=== PATIENT | male | born 1985 | race Caucasian/White ===

== ENCOUNTER 2017-07-09 14:15 | Outpatient (CLI) | payer OTHER | END 2017-07-09 23:59 | disposition home or self-care (01) | LOC: LAB 14:15 | PROVIDERS: ATTEND Internal Medicine Rheumatology | DX: L40.50 Arthropathic psoriasis, unspecified (principal) | CPT/HCPCS: 36415; 85651 ==

== ENCOUNTER 2017-09-02 09:31 | Outpatient (CLI) | payer OTHER | END 2017-09-02 23:59 | disposition home or self-care (01) | LOC: RAD 09:31 | PROVIDERS: ATTEND Nurse Practitioner | DX: M25.462 Effusion, left knee (principal); R60.0 Localized edema; M23.52 Chronic instability of knee, left knee | CPT/HCPCS: 73721 ==

== ENCOUNTER 2025-03-08 06:13 | Day surgery (SDC) | payer BC ==
[~2025-03-08] VITALS: Ht 177.8 cm; Wt 104.4 kg
[~2025-03-08 06:13] MED LIST: CHOL100025 PO; FINA5TAB11 PO; IXEK80AU2 SQ; OMEG-167 PO; VITA40TA PO; ringers solution, lacted 1,000 ML IV SCH; simethicone 40mg/0.6ml oral drops 15ml PO ONE
--- NOTE | 2025-03-08 06:43 | ELECTROCARDIOGRAPH REPORT ---
[facility] Test Date: 2025-03-08 Test Time: 06:40:32 Pat Name: EDU CONTRERAS Department: [facility] Patient ID: [id number] Room: Gender: M Store Sales Consultant: RANJAN : 1985 Requested By: LIZ EDWARDS Order Number: [id number] Reading MD: Dr. Papi Chaudhary Measurements Intervals Twain Rate: 65 P: 70 DC: 175 QRS: 83 QRSD: 96 T: 50 QT: 377 QTc: 392 Interpretive Statements Sinus rhythm Baseline wander in lead(s) I,III,aVL Electronically Signed On 03-08-2025 6:45:[address] Papi Chaudhary Please click the below link to view image of tracing.
[2025-03-08 06:45] VITALS: BP 118/66; PULSE 80; RESP 16; TEMP 98.3; O2SAT 96
[2025-03-08] MEDS ORDERED: fentaNYL/PF 50MCG/1 ML 2ML syringe ONE (08:42)
[2025-03-08] MEDS ORDERED: MIDAZolam 1 MG/ML 5ML VIAL ONE (08:42)
[2025-03-08] MEDS ORDERED: propofol inj 20 ML IV ONE ×2 (09:01)
[2025-03-08 09:29] VITALS: BP 106/68; PULSE 64; RESP 14; O2SAT 97
[2025-03-08 09:40] VITALS: BP 114/70; PULSE 62; RESP 17; O2SAT 95
[2025-03-08 09:50] VITALS: BP 116/73; PULSE 55; RESP 0; O2SAT 95
[2025-03-08 10:00] VITALS: BP 121/87; PULSE 69; RESP 17; O2SAT 95
--- NOTE | 2025-03-09 12:14 | PATHOLOGY REPORT ---
[facility] [address] [place] [address] SURGICAL PATHOLOGY REPORT CaseNumber: [id number] Surgeon:Marcello Escalona M.D. CLINICAL INFORMATION CLINICAL INFORMATION: Family history neoplasm. DIAGNOSIS DIAGNOSIS: A.COLON, RECTUM; BIOPSY - TUBULAR ADENOMA DIAGNOSIS: B.COLON, ASCENDING; BIOPSY - TUBULAR ADENOMA - CHANGES OF INFLAMMATORY POLYP ALSO PRESENT MICROSCOPIC DESCRIPTION A. COLON, RECTUM MICROSCOPIC DESCRIPTION: One slide is examined. Performed. B. COLON, ASCENDING MICROSCOPIC DESCRIPTION: Two slides are examined. Performed. GROSS DESCRIPTION A. COLON, RECTUM GROSS DESCRIPTION: Received in a container of formalin labeled with the patient's name, number, and "rectal polyp" are 2 irregularly shaped pieces of ruiz tissue 0.5 x 0.4 x 0.2 and 0.7 x 0.7 x 0.3 cm. The specimens are sectioned. The specimen is entirely submitted as A1. The time at which the specimen was removed was 09. The time at which the specimen was placed in formalin was 09. B. COLON, ASCENDING GROSS DESCRIPTION: Received in a container of formalin labeled with the patient's name, number, and "ascending colon polyp" is a 1.8 x 1.4 x 0.3 cm aggregate of irregularly shaped pieces of ruiz tissue. The specimen is sectioned. The specimen is entirely submitted as B1-B2. The time at which the specimen was removed was 09. The time at which the specimen was placed in formalin was 0907. Electronically signed by: Orlin Pack M.D. 03/09/2025 11:44:00 AM
== END 2025-03-08 10:29 | disposition home or self-care (01) ==
LOC: PAS 06:13
PROVIDERS: ATTEND Internal Medicine Gastroenterology
DX: Z12.11 Encounter for screening for malignant neoplasm of colon (principal); K63.5 Polyp of colon; D12.2 Benign neoplasm of ascending colon; D12.8 Benign neoplasm of rectum; K21.9 Gastro-esophageal reflux disease without esophagitis; E78.5 Hyperlipidemia, unspecified; G47.33 Obstructive sleep apnea (adult) (pediatric); M19.90 Unspecified osteoarthritis, unspecified site; Z79.899 Other long term (current) drug therapy; Z90.49 Acquired absence of other specified parts of digestive tract; Z96.643 Presence of artificial hip joint, bilateral; Z98.818 Other dental procedure status; Z83.719 Family history of colon polyps, unspecified
CPT/HCPCS: 45385; 93005; J2250; J2704; J3010; J7120; Z7512; A4615; A4620